=== PATIENT | male | born 1995 | race Caucasian/White ===

== ENCOUNTER 2016-09-10 22:55 | Emergency (ER) | payer SELFPAY ==
[~2016-09-10] VITALS: Ht 172.7 cm; Wt 62.1 kg
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
[2016-09-11] MEDS ORDERED: NAPR500T PO (00:45)
[2016-09-11 00:53] VITALS: BP 137/67
--- NOTE | 2016-09-11 07:15 | Diagnostic Imaging Report ---
INDICATION: Right-sided rib pain. TECHNIQUE: Single view chest along with 3 views right ribs 11:43 PM. CORRELATION STUDY: 05/21/2013 FINDINGS: The heart size, mediastinal configuration and pulmonary vascularity are within normal limits. The lungs are clear with no consolidating infiltrate. There is no significant effusion or pneumothorax. No acute displaced right-sided rib fracture. IMPRESSION: 1. No radiographic evidence for acute abnormality of the chest. 2. Negative for acute displaced right rib fracture. Dictated by: Dictated on workstation # [id number]
--- OUTSIDE RECORDS SUMMARY | 2016-09-19 19:17 | XMS REPORT ---
Author Author REINA BRANTLEY Organization [employer] Address Unknown Phone Unavailable Care Team Providers Care Obstetrician Gynecologist Name Role Phone REINA BRANTLEY CP Unavailable Allergies, Adverse Reactions, Alerts Substance Reaction Event Type N.K.D.A. Info Not Available Non Drug Allergy Problems Problem Type Condition Code Onset Dates Condition Status Assessment Tinea versicolor B36.0 Active Problem Dermatophytosis of nail 110.1 Active Assessment Upper respiratory tract infection, unspecified type 465.9 Active Problem Tinea versicolor B36.0 Active Problem Streptococcal sore throat 034.0 Active Problem Upper respiratory tract infection, unspecified type 465.9 Active Problem Unspecified concussion 850.9 Active Problem Ingrowing nail 703.0 Active Problem Dysuria 788.1 Active Problem Viral warts, unspecified 078.10 Active Medications Medication Code System Code Instructions Start Date End Date Status Dosage Terbinafine [facility] [address]-01 1 % on chest and back 2 times a day Mar 03, 2015 Mar 17, 2015 as directed Azithromycin [facility] [address]-11 250 MG Orally Once a day Mar 03, 2015 Mar 08, 2015 2 tablets on the first day, then 1 tablet daily for 4 days Procedures Procedure Coding System Code Date Office Visit, Est Pt., Level 3 CPT-4 77677 Mar 03, 2015 STREP A ASSAY W/OPTIC CPT-4 82481 Mar 03, 2015 Vital Signs Date/Time: Mar 03, 2015 Temperature 98.2 F Weight 140.8 lbs Height 68 in BMI 21.41 Index Blood Pressure Diastolic 78 mmHg Blood Pressure Systolic 116 mmHg Cardiac Monitoring Heart Rate 96 bpm Results Name Result Date Reference Range Unit Abnormality Flag STREP A (IN HOUSE) ----STREP A neg [id number] ----Control + [id number] ----Lot # [id number] ----Exp date 01/25/1620150303 Summary Purpose [employer] Submission
== END 2016-09-11 00:51 | disposition home or self-care (01) ==
LOC: EDUNIT# 22:55 → ER 22:58
DX: R07.2 Precordial pain (principal); F17.210 Nicotine dependence, cigarettes, uncomplicated; Z95.5 Presence of coronary angioplasty implant and graft
CPT/HCPCS: 71101; 99282

== ENCOUNTER 2020-09-17 19:48 | Emergency (ER) | payer SELFPAY ==
[~2020-09-17] VITALS: Ht 177.8 cm; Wt 72.5 kg
[~2020-09-17 19:48] MED LIST: NAPR-1071 PO
[2020-09-17] MEDS ORDERED: LIDOCAINE 2% 20 ML (XYLOCAINE) VIAL INJ STA (20:15)
[2020-09-17] MEDS ORDERED: TETANUS,DIPTH,PERTUSS P/F (BOOSTRIX) 0.5 ML VIAL IM ONE (20:15)
[2020-09-17] MEDS ORDERED: LIDOCAINE 1% INJ 20 ML 20 ML VIAL ONE (20:23)
[2020-09-17 20:24] VITALS: BP 134/79
[2020-09-17] MEDS ORDERED: CEPH500T PO (20:44)
[2020-09-17] MEDS ORDERED: RX-CEPHALEXIN (KEFLEX) 250 MG CAP PPK#4 PO STA (20:44)
--- NOTE | 2020-09-17 20:44 | ED Upper Extremity ---
General Chief Complaint: Laceration Stated Complaint: L HAND LAC Allergies and Home Medications Allergies Coded Allergies: No Known Drug Allergies (Unverified , 05/21/13) Home Medications Naproxen 500 Mg Tablet, 500 MG PO BID Prescribed by: APRIL YAÑEZ on 09/11/16 0045 Past Ijputcw-Bkcfni-Ulttyv Hx Immunizations Up To Date Tetanus Booster (TDap): Unknown PED Vaccines UTD: Yes Seasonal Allergies Seasonal Allergies: No Past Medical History Surgeries: Yes Coronary Stent, Orthopedic Respiratory: No Cardiac: Yes (pediatric cardiac stent) Neurological: No Genitourinary: No Gastrointestinal: No Musculoskeletal: Yes (RIB FX) Endocrine: No HEENT: No Cancer: No Psychosocial: No Integumentary: No Blood Disorders: No Physical Exam Vital Signs Capillary Refill : Height, Weight, BMI Height: 5'8" Weight: 137lbs. oz. 62.980851pj; 22.04 BMI Method:Stated Progress/Results/Core Measures Results/Orders My Orders Orders - KATIE GAONA DO Dipht,Pertuss(Acell),Tet Adult (Boostrix (09/17/20 20:15) Lidocaine 2% Injection 20 Ml (Xylocaine (09/17/20 20:15) Lidocaine 1% Inj 20 Ml (Xylocaine 1% Inj (09/17/20 20:23) Medications Given in ED Current Medications Medications Dose Ordered Sig/Drai Route Start Time Stop Time Status Last Admin Dose Admin Diphtheria/ Tetanus/Acell Pertussis 0.5 ml ONCE ONCE IM 09/17/20 20:15 09/17/20 20:16 DC 09/17/20 20:28 0.5 ML Lidocaine HCl 20 ml STK-MED ONCE .ROUTE 09/17/20 20:23 09/17/20 20:26 DC 09/17/20 20:28 20 ML Departure Impression Primary Impression: Laceration of left index finger Additional Impression: Ygfhghftzz-zusrxzgno-dybweua (DPT) vaccination administered at current visit Disposition: 01 HOME, SELF-CARE Condition: Stable Departure-Patient Inst. Decision time for Depature: 20:40 [place] [facility] [place]ructions: Diphtheria and Tetanus Toxoids, and Acellular Pertussis Vaccine, Laceration Repair With Stitches (DC), SPLINT CARE Add. Discharge Instructions: LEAVE DRESSING IN PLACE FOR 24 HOURS, THEN YOU MAY CLEAN TWICE A DAY WITH ANTIBACTERIAL SOAP AND WATER ON A Q-TIP, OTHERWISE KEEP CLEAN AND DRY WEAR SPLINT AT ALL TIMES TYLENOL And MOTRIN NEEDED FOR PAIN SUTURES OUT IN 10 DAYS--RETURN TO ER FOR REMOVAL All discharge instructions reviewed with patient and/or family. Voiced understanding. Scripts Cephalexin (Cephalexin) 500 Mg Tablet 500 MG PO QID, #40 TAB Prov: KATIE GAONA DO 09/17/20 KATIE GAONA DO Sep 17, 2020 20:44
== END 2020-09-17 21:03 | disposition home or self-care (01) ==
LOC: EDUNIT# 19:48 → ER 19:51
DX: S61.211A Laceration without foreign body of left index finger without damage to nail, initial encounter (principal); Z23 Encounter for immunization; X58.XXXA Exposure to other specified factors, initial encounter
CPT/HCPCS: 12042; 90715

== ENCOUNTER 2021-10-14 04:44 | Emergency (ER) | payer OTHER ==
[~2021-10-14] VITALS: Ht 178 cm; Wt 72.5 kg
[~2021-10-14 04:44] MED LIST changes: +CEPH500T PO
[2021-10-14 04:52] VITALS: BP 123/72
--- NOTE | 2021-10-14 05:19 | ED Upper Extremity ---
General Chief Complaint: Upper Extremity Stated Complaint: RT HAND BROKEN,PAIN Nursing Triage Note: continued right hand pain after punching door frame 10/07/21. reports wrist brace causes increased pain to hand. Source: patient, other Exam Limitations: no limitations History of Present Illness Date Seen by Provider: Oct 14, 2021 Time Seen by Provider: 04:58 Initial Comments Patient and his significant other to the ER by private conveyance with chief complaint that he is having some pain when wearing the splint swelling and concerned about bone marrow leakage from a fracture of his fourth metacarpal. He had punched a door frame 7 days ago and went in , 2 days ago to [facility]. They did an x-ray which demonstrated a fracture. They put him in a splint. He does not use anything for pain besides ice. He is not having any numbness or tingling. He is able to extend and flex his fingers. He did not heard back on a referral for a surgeon. Allergies and Home Medications Allergies Coded Allergies: No Known Drug Allergies (Unverified , 05/21/13) Patient Home Medication List Home Medication List Reviewed: Yes Discontinued Medications Cephalexin (Cephalexin) 500 Mg Tablet, 500 MG PO QID Discontinued Reason: Duplicate Order Prescribed by: KATIE GAONA on 09/17/202043 Last Action: Discontinued Naproxen (Naprosyn) 500 Mg Tablet, 500 MG PO BID Discontinued Reason: Duplicate Order Prescribed by: APRIL YAÑEZ on 09/11/16 0045 Last Action: Discontinued Review of Systems Constitutional: No chills, No diaphoresis EENTM: No ear discharge, No ear pain Respiratory: No cough, No short of breath Cardiovascular: No chest pain, No edema Gastrointestinal: No abdominal pain, No nausea Genitourinary: No discharge, No dysuria Musculoskeletal: see HPI All Other Systems Reviewed Negative Unless Noted: Yes Past Mgasnuc-Wmvekx-Tadlaf Hx Patient Social History Tobacco Use?: Yes Substance use?: No Alcohol Use?: No Pt feels they are or have been: No Immunizations Up To Date Tetanus Booster (TDap): Unknown PED Vaccines UTD: Yes First/Initial COVID19 Vaccinat: none Seasonal Allergies Seasonal Allergies: No Past Medical History Surgery/Hospitalization HX: HEART SURGERY FOR MURMUR Surgeries: Yes Coronary Stent, Orthopedic Respiratory: No Cardiac: Yes (pediatric cardiac stent) Congenital Heart Disease, Heart Murmur Neurological: No Genitourinary: No Gastrointestinal: No Musculoskeletal: Yes (RIB FX) Endocrine: No HEENT: No Cancer: No Psychosocial: No Integumentary: No Blood Disorders: No Physical Exam Vital Signs Vital Signs - First Documented 10/14/21 04:52 Temp 36.0 Pulse 64 Resp 14 B/P (MAP) 123/72 (89) Pulse Ox 97 O2 Delivery Room Air Capillary Refill : Less Than 3 Seconds Height, Weight, BMI Height: 5'8" Weight: 137lbs. oz. 62.979528st; 22.00 BMI Method:Stated General Appearance: WD/WN, no apparent distress HEENT: PERRL/EOMI, normal ENT inspection, pharynx normal Neck: full range of motion, supple, normal inspection Cardiovascular: normal peripheral pulses, regular rate, rhythm Respiratory: no respiratory distress, no accessory muscle use Wrist: Yes normal inspection, Yes non-tender, Yes no evidence of injury, Yes normal ROM Hand: Right, swelling (Right hand minimal swelling with palpable deformity over the fourth metacarpal. Near complete flexion of the fingers.) Procedures/Interventions Suture Size: 4-0 Progress/Results/Core Measures Results/Orders Vital Signs/I&O 10/14/21 04:52 Temp 36.0 Pulse 64 Resp 14 B/P (MAP) 123/72 (89) Pulse Ox 97 O2 Delivery Room Air Blood Pressure Mean: 89 Progress Progress Note : Time: 05:17 Progress Note We reviewed the imaging on the disc that he provided. No further imaging is required at this time. We will get him set up with Dr. Harmon, hand surgeon and put him in a Colles' splint. He declined anything for pain. Departure Impression Primary Impression: Hand fracture, right Qualified Codes: S62.91XA - Unspecified fracture of right wrist and hand, initial encounter for closed fracture Disposition: 01 HOME, SELF-CARE Condition: Stable Departure-Patient Inst. Decision time for Depature: 05:19 Referrals: MICHELLE HARMON,LOCAL PHYSICIAN (PCP) Primary Care Physician Patient Instructions: Hand Fracture (DC) Add. Discharge Instructions: Wear the splint except to bathe to help reduce pain. Follow-up with Dr. Harmon next week. Ice 20 minutes on every 2 hours as needed for swelling and pain. Tylenol 1000 mg every 8 hours needed for pain. Ibuprofen 800 mg every 8 hours needed for pain. All discharge instructions reviewed with patient and/or family. Voiced understanding. Work/School Note: Work Release Form Date Seen in the Emergency Department: Oct 14, 2021 Return to Work: Oct 14, 2021 Restrictions: Need Release from Doctor Other Restrictions Listed Below: No use of right hand. Keep the splint clean and dry. Copy Copies To 1: MICHELLE HARMON TITUS J Oct 14, 2021 05:19
== END 2021-10-14 05:33 | disposition home or self-care (01) ==
LOC: EDUNIT# 04:44 → ER 04:46
DX: S62.304A Unspecified fracture of fourth metacarpal bone, right hand, initial encounter for closed fracture (principal); Z28.310 Unvaccinated for COVID-19; W22.09XA Striking against other stationary object, initial encounter
CPT/HCPCS: 99282

== ENCOUNTER 2022-02-06 00:49 | Emergency (ER) | payer OTHER ==
[~2022-02-06] VITALS: Ht 175.3 cm; Wt 61.2 kg
[2022-02-06 02:25] VITALS: BP_SYST 105; BP_SYST 116; BP_DIAS 80; BP_DIAS 82; BP_DIAS 83
[2022-02-06 02:30] LABS: BASOPHILS # (AUTO) 0.1 10^3/uL (0.0-0.1); BASOPHILS % (AUTO) 1 % (0-10); EOSINOPHILS # (AUTO) 0.1 10^3/uL (0.0-0.3); EOSINOPHILS % (AUTO) 1 % (0-10); HEMATOCRIT 40 % (40-54); HEMOGLOBIN 13.7 g/dL (13.3-17.7); LYMPHOCYTES # (AUTO) 3.2 10^3/uL (1.0-4.0); LYMPHOCYTES % (AUTO) 36 % (12-44); MEAN CORPUSCULAR HEMOGLOBIN 28 pg (25-34); MEAN CORPUSCULAR HGB CONC 34 g/dL (32-36); MEAN CORPUSCULAR VOLUME 83 fL (80-99); MEAN PLATELET VOLUME 11.8 fL (9.0-12.2); MONOCYTES # (AUTO) 0.8 10^3/uL (0.0-1.0); MONOCYTES % (AUTO) 9 % (0-12); NEUTROPHILS # (AUTO) 4.7 10^3/uL (1.8-7.8); NEUTROPHILS % (AUTO) 53 % (42-75); PLATELET COUNT 234 10^3/uL (130-400); WHITE BLOOD COUNT 8.8 10^3/uL (4.3-11.0)
[2022-02-06 02:38] LABS: INR 1.1 (0.8-1.4); PROTHROMBIN TIME PATIENT 14.4 SEC (12.2-14.7)
[2022-02-06] MEDS ORDERED: LACTATED RINGERS 1,000 ML IV ONE (02:45)
[2022-02-06 02:46] LABS: ALANINE AMINOTRANSFERASE 19 U/L (0-55); ALBUMIN 4.6 GM/DL (3.2-4.5); ALKALINE PHOSPHATASE 71 U/L (40-136); AMYLASE 77 U/L (25-125); BILIRUBIN,TOTAL 0.6 MG/DL (0.1-1.0); BUN/CREATININE RATIO 10; CALCIUM 9.7 MG/DL (8.5-10.1); CARBON DIOXIDE 24 MMOL/L (21-32); CHLORIDE 105 MMOL/L (98-107); CREATININE SERUM 0.94 MG/DL (0.60-1.30); GFR ESTIMATED 114; GLUCOSE 90 MG/DL (70-105); LIPASE 13 U/L (8-78); MAGNESIUM 2.1 MG/DL (1.6-2.4); POTASSIUM 3.7 MMOL/L (3.6-5.0); SODIUM 139 MMOL/L (135-145); TOTAL PROTEIN 7.6 GM/DL (6.4-8.2)
--- NOTE | 2022-02-06 02:57 | ED GI ---
General Chief Complaint: Abdominal/GI Problems Stated Complaint: POSS INTERNAL BLEEDING,DIZZY,VOMITING,BLOOD IN STO Nursing Triage Note: PT AMB TO RM 9 W C/O BLACK STOOLS AND INTERMITTENT SEV ABD PAIN/VOMITING X3 WEEKS, DENIES PAIN AND NAUSEA AT THIS TIME. PT REPORTS HE WAS SUPPOSED TO GO TO WORK TONIGHT BUT BOSS TOLD HIM TO GO TO THE HOSPITAL. PT A&OX4. Source of Information: Patient History of Present Illness Date Seen by Provider: Feb 06, 2022 Time Seen by Provider: 01:40 Initial Comments PT ARRIVES VIA POV FROM HOME WITH FEMALE STATES FOR THE LAST 3 WEEKS, HE HAS BEEN HAVING GENERALIZED ABDOMINAL PAIN, NAUSEA/VOMITING AND BLACK STOOLS STATES "IT ONLY HAPPENS ON MONDAYS WHEN I DO A 16 HOUR SHIFT, AND USUALLY BETWEEN 0500 AND 0600 LAST TIME IT HAPPENED WAS 1 WEEK AGO. , AND DOES NOT HAVE ANY PAIN NOW, HAS NOT HAD ANY NAUSEA/VOMITING FOR THE LAST WEEK STATES HE HAD A BLACK STOOL 5-6 HOURS AGO. NO SYMPTOMS NOW. HAS BEEN EATING AND DRINKING NORMALLY. 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 DENIES ANY MEDICAL PROBLEMS PT IS NOT COVID OR FLU VACCINATED PCP: CHAITANYA Allergies and Home Medications Allergies Coded Allergies: No Known Drug Allergies (Unverified , 05/21/13) Patient Home Medication List Home Medication List Reviewed: Yes Ondansetron (Ondansetron Odt) 4 Mg Tab.rapdis, 4 MG PO Q4H Prescribed by: KATIE GAONA on 02/06/22345 Pantoprazole Sodium (Protonix) 40 Mg Tablet.dr, 40 MG PO DAILY Prescribed by: KATIE GAONA on 02/06/22345 Review of Systems Review of Systems Constitutional: no symptoms reported EENTM: No Symptoms Reported Respiratory: No Symptoms Reported Cardiovascular: No Symptoms Reported Gastrointestinal: See HPI, Abdominal Pain, Diarrhea, Nausea, Vomiting Genitourinary: No Symptoms Reported Musculoskeletal: no symptoms reported Skin: no symptoms reported Psychiatric/Neurological: No Symptoms Reported Endocrine: No Symptoms Reported Hematologic/Lymphatic: No Symptoms Reported Past [id number] Hx Patient Social History Tobacco Use?: Yes Tobacco type used: Cigarettes Smoking Status: Current Everyday Smoker Use of E-Cig and/or Vaping dev: No Substance use?: Yes Substance type: Methamphetamine, Marijuana Alcohol Use?: Yes Alcohol type: Hard Liquor Immunizations Up To Date Tetanus Booster (TDap): Unknown PED Vaccines UTD: Yes Influenza Vaccine Up-to-Date: No; Not Current First/Initial COVID19 Vaccinat: none Second COVID19 Vaccination Kevin: none Third COVID19 Vaccination Date: none COVID19 Vaccine Interventional Tech: none Seasonal Allergies Seasonal Allergies: No Past Medical History Surgery/Hospitalization HX: HEART SURGERY FOR MURMUR Surgeries: Yes Cardiac Respiratory: No Cardiac: Yes (UNKNOWN SURGERY FOR HEART MURMUR AGE 1) Congenital Heart Disease, Heart Murmur Neurological: No Genitourinary: No Gastrointestinal: No Musculoskeletal: Yes (RIB FX) Endocrine: No HEENT: No Cancer: No Psychosocial: No Integumentary: No Blood Disorders: No Family Medical History SOCIAL HISTORY: PER PT ON 02/06/22 -SMOKES 1/2-1 PPD -ETOH--HISTORY OF ABUSE--1 LITER OF VODKA OR 2-3 FIFTHS OF WHISKEY A DAY. CLAIMS NONE SINCE 05/2021 -DRUGS--SMOKED METHAMPHETAMINES AND MARIJUANA. CLAIMS CHERELLE FOR 4 YEARS. DENIES IV DRUG USE. Physical Exam Vital Signs Vital Signs - First Documented 02/06/22 01:20 Temp 36.6 Pulse 73 Resp 20 B/P (MAP) 122/90 (101) Pulse Ox 99 O2 Delivery Room Air Capillary Refill : Less Than 3 Seconds Height/Weight/BMI Height: 5'8" Weight: 137lbs. oz. 62.401757er; 19.00 BMI Method:Stated General Appearance: WD/WN, no apparent distress, thin, other (DIRTY, UNKEMPT, VERY MALODOROUS. DOES NOT APPEAR ILL OR TO BE IN ANY DISCOMFORT OR DISTRESS. ) HEENT: PERRL/EOMI; No scleral icterus (R), No scleral icterus (L), No pale conjunctivae (R), No pale conjunctivae (L) Neck: normal inspection Respiratory: normal breath sounds, no respiratory distress, no accessory muscle use Cardiovascular: regular rate, rhythm, no murmur Gastrointestinal: normal bowel sounds, non tender, soft, no organomegaly Extremities: normal inspection, normal capillary refill Back: normal inspection, no CVA tenderness Neurologic/Psychiatric: city collector II-XII nml as tested, no motor/sensory deficits, alert, normal mood/affect, oriented x 3 Skin: normal color, warm/dry, tattoos/piercings (TATTOOS) Procedures/Interventions Suture Size: 4-0 Progress/Results/Core Measures Results/Orders Lab Results Laboratory Tests Test 02/06/22 02:15 Range/Units White Blood Count 8.8 4.3-11.0 10^3/uL Red Blood Count 4.86 4.30-5.52 10^6/uL Hemoglobin 13.7 13.3-17.7 g/dL Hematocrit 40 40-54 % Mean Corpuscular Volume 83 80-99 fL Mean Corpuscular Hemoglobin 28 25-34 pg Mean Corpuscular Hemoglobin Concent 34 32-36 g/dL Red Cell Distribution Width 13.1 10.0-14.5 % Platelet Count 234 130-400 10^3/uL Mean Platelet Volume 11.8 9.0-12.2 fL Immature Granulocyte % (Auto) 0 % Neutrophils (%) (Auto) 53 42-75 % Lymphocytes (%) (Auto) 36 12-44 % Monocytes (%) (Auto) 9 0-12 % Eosinophils (%) (Auto) 1 0-10 % Basophils (%) (Auto) 1 0-10 % Neutrophils # (Auto) 4.7 1.8-7.8 10^3/uL Lymphocytes # (Auto) 3.2 1.0-4.0 10^3/uL Monocytes # (Auto) 0.8 0.0-1.0 10^3/uL Eosinophils # (Auto) 0.1 0.0-0.3 10^3/uL Basophils # (Auto) 0.1 0.0-0.1 10^3/uL Immature Granulocyte # (Auto) 0.0 0.0-0.1 10^3/uL Prothrombin Time 14.4 12.2-14.7 SEC INR Comment 1.1 0.8-1.4 Activated Partial Thromboplast Time 33 24-35 SEC Sodium Level 139 135-145 MMOL/L Potassium Level 3.7 3.6-5.0 MMOL/L Chloride Level 105 98-107 MMOL/L Carbon Dioxide Level 24 21-32 MMOL/L Anion Gap 10 5-14 MMOL/L Blood Urea Nitrogen 9 7-18 MG/DL Creatinine 0.94 0.60-1.30 MG/DL Estimat Glomerular Filtration Rate 114 BUN/Creatinine Ratio 10 Glucose Level 90 70-105 MG/DL Calcium Level 9.7 8.5-10.1 MG/DL Corrected Calcium 8.5-10.1 MG/DL Magnesium Level 2.1 1.6-2.4 MG/DL Total Bilirubin 0.6 0.1-1.0 MG/DL Aspartate Amino Transf (AST/SGOT) 16 5-34 U/L Alanine Aminotransferase (ALT/SGPT) 19 0-55 U/L Alkaline Phosphatase 71 40-136 U/L Total Protein 7.6 6.4-8.2 GM/DL Albumin 4.6 H 3.2-4.5 GM/DL Amylase Level 77 25-125 U/L Lipase 13 8-78 U/L Serum Alcohol < 10 <10 MG/DL Influenza Type A (RT-PCR) Not Detected Not Detecte Influenza Type B (RT-PCR) Not Detected Not Detecte SARS-CoV-2 RNA (RT-PCR) Not Detected Not Detecte My Orders Orders - KATIE GAONA DO Ed Iv/Invasive Line Start (02/06/22:38) Monitor-Rhythm Ecg Trace Only (02/06/22:38) Orthostatic Vital Signs (Adult (02/06/22:38) Alcohol (02/06/22:38) Amylase (02/06/22:38) Cbc With Automated Diff (02/06/22:38) Comprehensive Metabolic Panel (02/06/22:38) Drug Screen Stat (Urine) (02/06/22:38) Lipase (02/06/22:38) Magnesium (02/06/22:38) Protime With Inr (02/06/22:38) Partial Thromboplastin Time (02/06/22:38) Ua Culture If Indicated (02/06/22:38) Chest 1 View, Ap/Pa Only (02/06/22 01:38) Covid 19 Inhouse Test (02/06/22 01:38) Influenza A And B By Pcr (02/06/22 01:38) Isolation Central Supply Req (02/06/22 01:38) Stool Culture (02/06/22 02:10) Fecal Wbc (02/06/22 02:10) C Difficile Ag + Toxin A/B. (02/06/22 02:10) Isolation Central Supply Req (02/06/22 02:10) Occult Blood Stool (02/06/22 02:10) Ed Iv/Invasive Line Start (02/06/22 02:31) Lactated Ringers (Lr 1000 Ml Iv Solution (02/06/22 02:45) Medications Given in ED Current Medications Medications Dose Ordered Sig/Dari Route Start Time Stop Time Status Last Admin Dose Admin Lactated Ringer's 1,000 ml @ 0 mls/hr Q0M ONCE IV 02/06/22 02:45 02/06/22 02:46 DC 02/06/22 02:48 0 MLS/HR Vital Signs/I&O 02/06/22 02/06/22 01:20 02:25 Temp 36.6 Pulse 73 68 81 82 Resp 20 B/P (MAP) 122/90 (101) 116/80 (92) 116/82 (93) 105/83 (90) Pulse Ox 99 O2 Delivery Room Air Blood Pressure Mean: 90 Progress Progress Note : Progress Note PLACED IN ISOLATION ROOM PPE WORN COVID AND FLU TESTING DONE ORTHOSTATICS --MILDLY ABNORMAL GIVEN IV FLUIDS NO SYMPTOMS OF ANY KIND DURING ER STAY VITALS STABLE Departure Impression Primary Impression: SELF REPORTED BLACK STOOLS WITH NAUSEA/VOMITING AND ABD PAIN Disposition: 01 HOME, SELF-CARE Condition: Stable Departure-Patient Inst. Decision time for Depature: 03:44 Referrals: [facility] Patient Instructions: Abdominal Pain, Adult ED Add. Discharge Instructions: CLEAR LIQUIDS--WATER, BROTH, JELLO, GATORADE BRATS DIET--BANANAS, RICE, APPLESAUCE, TOAST, SALTINES FOLLOW UP WITH [facility] THIS WEEK FOR FURTHER CARE--CALL IN THE MORNING TO SCHEDULE APPOINTMENT All discharge instructions reviewed with patient and/or family. Voiced understanding. Scripts Ondansetron (Ondansetron Odt) 4 Mg Tab.rapdis 4 MG PO Q4H for Nausea/Vomiting, #10 TAB Prov: KATIE GAONA DO 02/06/22 Pantoprazole Sodium (Protonix) 40 Mg Tablet.dr 40 MG PO DAILY, #15 TAB Prov: KATIE GAONA DO 02/06/22 KATIE GAONA DO Feb 06, 2022 02:57
[2022-02-06] MEDS ORDERED: PANT40TA2 PO (03:46)
[2022-02-06] MEDS ORDERED: ONDA4TAB11 PO (03:46)
[2022-02-06 03:53] VITALS: BP 127/87
[2022-02-06 05:03] LABS: BILIRUBIN,URINE NEGATIVE (NEGATIVE); CLARITY,URINE CLEAR; COLOR,URINE YELLOW; GLUCOSE, URINE (UA) NEGATIVE (NEGATIVE); KETONES,URINE NEGATIVE (NEGATIVE); LEUKOCYTE ESTERASE ,URINE NEGATIVE (NEGATIVE); NITRITE,URINE NEGATIVE (NEGATIVE); PH,URINE 6.5 (5-9); PROTEIN,URINE NEGATIVE (NEGATIVE)
[2022-02-06 05:20] LABS: BACTERIA,URINE NEGATIVE /HPF
--- NOTE | 2022-02-06 08:22 | Diagnostic Imaging Report ---
EXAMINATION: Chest 1 view HISTORY: Cough. COMPARISON: 05/21/2013. FINDINGS: The lung volumes are normal. No focal consolidation is seen. No large pleural effusion or pneumothorax is seen. The cardiomediastinal silhouette is normal in size and contour. No acute osseous abnormality is seen. IMPRESSION: 1. No acute pleuroparenchymal process. Dictated by: Dictated on workstation # [id number]
== END 2022-02-06 03:53 | disposition home or self-care (01) ==
LOC: EDUNIT# 00:49 → ER 00:54
DX: R10.84 Generalized abdominal pain (principal); R11.2 Nausea with vomiting, unspecified; R19.5 Other fecal abnormalities; F17.210 Nicotine dependence, cigarettes, uncomplicated; Z28.310 Unvaccinated for COVID-19
CPT/HCPCS: 71045; 80053; 81000; 82150; 83690; 83735; 85025; 85610; 85730; 87636; 93041; 99283; G0480; 36415; 80320